=== PATIENT | male | born 1955 | race Caucasian/White ===

== ENCOUNTER 2023-09-18 14:33 | Emergency (ER) | payer MEDICARE, OTHER, SELFPAY ==
[2023-09-18 14:43] VITALS: BP 126/76
[2023-09-18 14:57] LABS: Urine Albumin Negative (Neg - Trace); Urine Bilirubin Negative (Negative); Urine Character Clear (Clear); Urine Color Yellow; Urine Glucose Negative (Negative); Urine Ketone Negative (Negative); Urine Leukocyte Negative (Negative); Urine Nitrite Negative (Negative); Urine Occult Blood Negative (Negative); Urine Urobilinogen Negative (Neg - 1+)
[2023-09-18] MEDS: TORADOL 15 MG IV (16:31)
[2023-09-18] MEDS: NSS 500 IV (16:32)
[2023-09-18 16:47] LABS: % Basophils 0.8 % (0-2); % Eosinophils 2.1 % (0-6); % Immature Granulocytes 0.1 % (0-0.5); % Lymphocytes 14.4 % (20.5-51.1); % Monocytes 9.9 % (1.7-9.3); % Neutrophils 72.7 % (42.2-75.2); Absolute Basophils 0.1 10^3/uL (0-0.2); Absolute Eosinophils 0.2 10^3/uL (0-0.7); Absolute Lymphocytes 1.2 10^3/uL (1.2-3.4); Absolute Monocytes 0.8 10^3/uL (0.1-0.6); Absolute Neutrophils 5.8 10^3/uL (1.4-6.5); Mean Corp Hgb Conc. 35.1 g/dL (33.0-37.0); Mean Corpuscular Hgb 30.2 pg (27.0-31.0); Mean Corpuscular Volume 85.8 fL (80.0-94.0); Mean Platelet Volume 10.2 fL (7.4-10.4); Nucleated Red Blood Cells % 0 % (-); Platelet Count 211 10^3/uL (130-400); Red Blood Cell Count 4.31 10^6/uL (4.70-6.10); Red Cell Dist. Width 12.9 % (11.5-14.5)
--- NOTE | 2023-09-18 16:59 | ED.GENMED ---
History of Present Illness
General
Chief Complaint: Male Genito-Urinary Symptoms
Source: patient
Exam Limitations: none
Time Seen by Provider: 09/18/23 15:43
Nursing documentation reviewed up to this point in time: agreed with
Travel History
Have you had any contact with someone who has COVID-19?: No
Do you have any symptoms of coronavirus? Fever > 100 degrees, chills, cough, shortness of breath, sore throat, loss of taste or smell, muscle aches, or headache?: No
History of Present Illness
History of Present Illness:
68-year-old male with past medical history of hypertension hyperlipidemia, diabetes presenting to the emergency department today with concerns of low back pain feeling similar to previous kidney stones had similar episode in May had an infected
stone required surgery. Also has had constipation and some urinary frequency. Took some Motrin earlier today with some mild improvement of symptoms. Denies specific fevers. No chest pain shortness of breath. No nausea vomiting.
Past History
Past History
ED Past Medical History: None
ED Past Surgical History: Appendectomy
Social History
Tobacco: Non-smoker
Alcohol: None
Drug: None
Personal:
Living: with family
Review of Systems
Review of Systems
Allergies reviewed?: Yes
All Other Systems: ROS reviewed and negative except as documented in HPI and ROS
Phy Exam
Physical Exam
Physical Exam:
GENERAL: Alert , in no apparent distress
EYE: pupils equal and reactive
NECK: Supple, no significant adenopathy.
ENT: o/p clr, mmm.
CARDIAC: Regular rate and rhythm .
LUNGS: Clear breath sounds bilaterally, no acute respiratory distress, no wheezes/rales/rhonchi
ABDOMEN: Soft, without focal tenderness, no r/g, no cvat
NEUROLOGICAL: Alert and oriented, no focal neuro deficits
SKIN: Warm and dry, skin intact.
MUSCULOSKELETAL: No edema, well perfused.
PSYCH: Normal and appropriate interaction.
Course
Orders/Labs/Results
Orders:
Orders
09/18/23 14:50
Urinalysis Reflex To Culture Urgent
Date Specimen was Collected: 09/18/23
Time Specimen was Collected: 14:46
09/18/23 16:11
CT Abd/pel Without Iv Or Oral Urgent
Comment:
Reason For Exam: flank pain recent infected stone
0.9% Sodium Chloride 500 ml [Nss] 500 ml IV BOLUS
Ketorolac [Toradol] 15 mg IV NOW STA
09/18/23 16:36
Complete Blood Count/With Diff Urgent
Comprehensive Metabolic Panel Urgent
Abnormal Lab Results
09/18/23
16:36
RBC 4.31 L 10^6/uL
(4.70-6.10)
Hct 37.0 L %
(39.0-52.0)
Absolute Monos (auto) 0.8 H 10^3/uL
(0.1-0.6)
Lymphocytes % 14.4 L %
(20.5-51.1)
Monocytes % 9.9 H %
(1.7-9.3)
BUN 24 H mg/dl
(9-20)
09/18/23 16:36
09/18/23 16:36
Vital Signs
Initial and Last Documented VS:
Initial Vital Signs
Temp Pulse Resp BP Pulse Ox
97.9 F 92 16 126/76 97
09/18/23 14:43 09/18/23 14:43 09/18/23 14:43 09/18/23 14:43 09/18/23 14:43
Last Documented Vital Signs
Temp Pulse Resp BP Pulse Ox
97.9 F 86 18 115/98 98
09/18/23 14:43 09/18/23 17:59 09/18/23 17:59 09/18/23 17:59 09/18/23 17:59
MDM/Problems Addressed
MDM/Problems Addressed:
68-year-old male presenting to the emergency department today with concerns of flank pain over the past week feels somewhat similar to previous kidney stones. Has had some urinary frequency and constipation as well. Vital signs normal upon arrival
no reproducible symptoms on exam moving freely on exam as well. Urinalysis without any significant abnormalities. Labs unremarkable urinalysis without emergent findings CT scan without emergent findings as well incidental findings were discussed
with the patient who demonstrated understanding with follow-up closely as an outpatient. Stable throughout ER stay. Return precautions given.
*Critical Care Note
Total Time (30-74mins, 75-104mins- exclusive of procedures): Not Applicable
ED Attending Note
-
Portions of this chart may have been created with voice recognition software.� Occasional wrong word or��sound alike� substitutions may have occurred due to the inherent limitations of voice recognition software.
Discharge Plan
Departure
Patient Disposition: Home (Routine Discharge)
Date of Disposition: 09/18/23
Time of Disposition: 20:04
Patient with high blood pressure during this ER visit?: No
Condition: Good
Covid-19: Not Applicable
Discharge Problem:
Flank pain
Instructions: Low Back Pain (DC)
Prescriptions:
No Action
simvastatin 20 mg Tablet
20 mg PO DAILY
sertraline 25 mg Tablet
25 mg PO DAILY
lisinopril 5 mg Tablet
5 mg PO DAILY
Multivitamin 50 Plus Tablet
1 tab PO DAILY
metformin 500 mg tablet
500 mg PO BID Qty: 60 0RF
cefpodoxime 200 mg tablet
200 mg PO BID Qty: 24 0RF
Referrals:
Dexter Hernandez DO [Family Provider] -
Activity Restrictions/Additional Instructions:
You came to the emergency department today with concerns of flank pain. Here you had a reassuring evaluation. Please follow close with your urologist and primary care doctor. Return to the emergency department for any worsening, new or concerning
symptoms.
Interventions
Interventions:
*Risk Screen - Suicide Last Done: 09/18/23 16:10
*General Assessment Last Done: 09/18/23 16:10
*Neglect/Abuse Screening Last Done: 09/18/23 16:10
*ED COVID-19 Vaccine History Last Done: 09/18/23 16:10
ED-Male Genitourinary Assessment Last Done: 09/18/23 16:10
ED-Musculoskeletal Assessment Last Done: 09/18/23 16:10
Discharge Date and Time
Print Language: SETS[place]
[2023-09-18 17:04] LABS: ALT (SGPT) 19 U/L (0-50); AST (SGOT) 21 U/L (17-59); Alkaline Phosphatase 54 U/L (38-126); Blood Urea Nitrogen 24 mg/dl (9-20); Carbon Dioxide 27 mmol/L (22-30); Chloride 107 mmol/L (98-107); Glucose 99 mg/dl (70-99); Potassium 4.2 mmol/L (3.5-5.1); Sodium 141 mmol/L (135-145); Total Bilirubin 0.6 mg/dl (0.2-1.3); Total Protein 6.3 g/dl (6.3-8.2); eGFR > 60.00
[2023-09-18 17:59] VITALS: BP 115/98
[2023-09-18 20:34] VITALS: BP 126/74
== END 2023-09-18 20:35 | disposition home or self-care (01) ==
LOC: EMR 14:33
PROVIDERS: Emergency Medicine; Physician Assistant; EMERGENCY PHYSICIAN Student in an Organized Health Care Education/Training Program; FAMILY PHYSICIAN Family Medicine
DX: R10.9 Unspecified abdominal pain (principal); I10 Essential (primary) hypertension; E11.9 Type 2 diabetes mellitus without complications; E78.5 Hyperlipidemia, unspecified
CPT/HCPCS: 99284; 96374; 74176; 80053; 81003; 85025

== ENCOUNTER → 2023-11-09 06:47 | Outpatient (REF) | payer MEDICARE, OTHER, SELFPAY | LOC: RAD 06:47 | PROVIDERS: ATTENDING PHYSICIAN Specialist; FAMILY PHYSICIAN Family Medicine | DX: N20.0 Calculus of kidney (principal) | CPT/HCPCS: 74018 ==

== ENCOUNTER → 2025-01-14 07:08 | Outpatient (REF) | payer MEDICARE, OTHER, SELFPAY | LOC: PAVMRI 07:08 | PROVIDERS: ATTENDING PHYSICIAN Orthopaedic Surgery; FAMILY PHYSICIAN Family Medicine | DX: M25.561 Pain in right knee (principal) | CPT/HCPCS: 73721 ==